=== PATIENT | male | born 1975 | race African-American/Black ===

== ENCOUNTER 2017-04-04 18:28 | Emergency (ER) | payer MEDICAID, OTHER ==
[~2017-04-04] VITALS: Ht 175.3 cm; Wt 67.0 kg
[2017-04-05] MEDS ORDERED: IPRATROPIUM/ALBUTEROL 0.5-3(2.5)MG/3ML NEB HHN ONE (03:45)
[2017-04-05 04:07] LABS: HEMOGLOBIN. 13.1 g/dL (14.0-18.0); INR 1.2; MEAN CORPUSCULAR HEMOGLOBIN 32.6 pg (28.0-32.0); MEAN CORPUSCULAR VOLUME 94.3 fL (80.0-94.0); MEAN PLATELET VOLUME 7.8 fl (7.4-10.4); PLATELET 195 x1000/uL (130-400); PROTHROMBIN TIME 12.5 sec (9.4-11.6); RED BLOOD CELL COUNT 4.03 mill/uL (4.7-6.1); RED CELL DISTRIBUTION WIDTH 11.7 % (11.6-14.6)
[2017-04-05 04:13] LABS: CHLORIDE 103 mEq/L (98-107)
[2017-04-05 04:17] VITALS: BP 115/77
[2017-04-05] MEDS ORDERED: SODIUM CHLORIDE 0.9% 1,000 ML IV ONE (04:20)
[2017-04-05] MEDS ORDERED: OSELTAMIVIR 75MG CAPSULE PO ONE (05:15)
[2017-04-05 06:42] LABS: PLATELET ESTIMATE NORMAL
== END 2017-04-05 05:40 | disposition home or self-care (01) ==
LOC: ER 18:57
DX: J11.1 Influenza due to unidentified influenza virus with other respiratory manifestations (principal); J45.909 Unspecified asthma, uncomplicated; F12.10 Cannabis abuse, uncomplicated; F17.290 Nicotine dependence, other tobacco product, uncomplicated; Z88.5 Allergy status to narcotic agent
CPT/HCPCS: 36415; 71045; 80053; 85025; 85610; 87804; 94640; 99285; J7030; J7620; Z7610

== ENCOUNTER 2018-02-10 16:23 | Inpatient (IN) | payer MEDICAID ==
[~2018-02-10] VITALS: Ht 172.7 cm; Wt 70.8 kg
[2018-02-10] MEDS ORDERED: IPRATROPIUM BROMIDE (0.02%) 0.5MG/2.5ML NEB HHN STA (16:41)
[2018-02-10] MEDS ORDERED: METHYLPREDNISOLONE SOD SUCC 125 MG/2 ML VIAL IV STA (16:41)
[2018-02-10] MEDS ORDERED: MAGNESIUM 2 G PREMIX 50 ML IV ONE (16:45)
[2018-02-10] MEDS ORDERED: ALBUTEROL (0.083%) 2.5MG/3ML NEB HHN SCH (17:00)
[2018-02-10 17:31] LABS: BASOPHILS % 0.4 % (0.0-2.0); CHLORIDE 102 mEq/L (98-107); EOSINOPHILS % 4.4 % (0.0-5.0); HEMATOCRIT. 45.1 % (42.0-52.0); HEMOGLOBIN. 15.2 g/dL (14.0-18.0); LYMPHOCYTES % 30.9 % (20.0-50.0); MEAN CORPUSCULAR HEMOGLOBIN 32.2 pg (28.0-32.0); MEAN CORPUSCULAR VOLUME 95.6 fL (80.0-94.0); MEAN PLATELET VOLUME 8.1 fl (7.4-10.4); MONOCYTES % 8.2 % (2.0-8.0); NEUTROPHILS % 56.1 % (40.0-76.0); PLATELET 234 x1000/uL (130-400); RED BLOOD CELL COUNT 4.72 mill/uL (4.7-6.1); RED CELL DISTRIBUTION WIDTH 11.8 % (11.6-14.6)
[2018-02-10 17:57] LABS: INR 1.2; PROTHROMBIN TIME 11.6 sec (9.1-11.1)
[2018-02-10] MEDS ORDERED: SODIUM CHLORIDE 0.9% 1000ML BAG (SEPSIS BOLUS) IV ONE (18:30)
[2018-02-10] MEDS ORDERED: AZITHROMYCIN 500 MG in DEXT 5% WATER 250 ML IV ONE (18:45)
[2018-02-10] MEDS ORDERED: CEFTRIAXONE 2 G PREMIX 50 ML IV ONE (18:45)
[2018-02-10 23:28] VITALS: BP 140/80
[2018-02-11] VITALS (9 sets, daily range): BP systolic 107–148; BP diastolic 53–93
[2018-02-11] MEDS ORDERED: MULT-1146 MT (00:43)
[2018-02-11] MEDS ORDERED: ALBU05 NEB (00:45)
[2018-02-11] MEDS ORDERED: HYDROCODONE/ACETAMINOPHEN 10/325MG TABLET PO PRN (00:45)
[2018-02-11] MEDS ORDERED: IPRATROPIUM/ALBUTEROL 0.5-3(2.5)MG/3ML NEB HHN PRN (00:45)
[2018-02-11] MEDS ORDERED: DIPHENHYDRAMINE 50MG CAPSULE PO PRN (00:45)
[2018-02-11] MEDS ORDERED: LORA5TAB8 MT (00:45)
[2018-02-11] MEDS ORDERED: ACETAMINOPHEN 325MG TABLET PO PRN (00:45)
[2018-02-11] MEDS ORDERED: NON FORMULARY PATIENT HOME MED EA XX SCH (00:45)
[2018-02-11] MEDS ORDERED: ALBU90AE INH (00:45)
[2018-02-11] MEDS ORDERED: ZOLPIDEM TARTRATE 5MG TABLET PO PRN (02:15)
[2018-02-11] MEDS ORDERED: LEVOFLOXACIN 500MG PREMIX 100 ML IV SCH (03:00)
[2018-02-11] MEDS ORDERED: ALBUTEROL (0.083%) 2.5MG/3ML NEB HHN SCH (06:00)
[2018-02-11] MEDS ORDERED: METHYLPREDNISOLONE SOD SUCC 40 MG/ML VIAL IV SCH (08:00)
[2018-02-11] MEDS ORDERED: BUDESONIDE 0.5MG/2ML NEB HHN SCH (09:00)
[2018-02-11] MEDS: IPRATROPIUM/ALBUTEROL 0.5-3(2.5)MG/3ML NEB HHN SCH ×2 (09:05→12:31)
[2018-02-11] MEDS ORDERED: LORATADINE 10MG TABLET PO SCH ×2 (11:30→21:00)
[2018-02-11] MEDS ORDERED: PNEUMOCOCCAL 23-VAL P-SAC VAC 0.5 ML IM ONE (12:00)
[2018-02-11] MEDS ORDERED: INFLUENZA VIRUS VACCINE(AFLURIA) 0.5ML SYR IM ONE (12:00)
[2018-02-11] MEDS ORDERED: NICOTINE 21MG PATCH TD NR (13:00)
[2018-02-11] MEDS ORDERED: FAMOTIDINE 20MG/2ML VIAL IV NR (13:00)
[2018-02-11] MEDS ORDERED: MONTELUKAST SODIUM 10MG TABLET PO SCH (21:00)
[2018-02-11] MEDS ORDERED: FAMOTIDINE 20MG/2ML VIAL IV SCH (21:00)
[2018-02-12] MEDS ORDERED: NICOTINE 21MG PATCH TD SCH (09:00)
== END 2018-02-11 14:19 | disposition home or self-care (01) | DRG 144 ==
LOC: ER 16:48 → 5EST 18:35 → EDBEDREQSVC 18:38 → EDBEDREQTM 18:38 → EDBEDREQ 18:38 → ENRESERV 21:57
PROVIDERS: ADMIT Internal Medicine; ATTEND Internal Medicine
PROC: 5A09357 Assistance with Respiratory Ventilation, Less than 24 Consecutive Hours, Continuous Positive Airway Pressure (ICD-10-PCS; principal; 2018-02-10)
DX: J68.0 Bronchitis and pneumonitis due to chemicals, gases, fumes and vapors (principal); J96.00 Acute respiratory failure, unspecified whether with hypoxia or hypercapnia; J45.901 Unspecified asthma with (acute) exacerbation; F17.210 Nicotine dependence, cigarettes, uncomplicated; F12.90 Cannabis use, unspecified, uncomplicated; E87.2 Acidosis; Z88.5 Allergy status to narcotic agent; Z82.5 Family history of asthma and other chronic lower respiratory diseases
CPT/HCPCS: 36415; 71045; 83605; 83880; 84484; 90686; 90732; 93005; 94640; 94660; 96365; 96375; 99291; J0456; J0696; J1956; J2920; J2930; J3475; J7060; J7611; J7620; J7626

== ENCOUNTER 2018-02-24 20:00 | Emergency (ER) | payer MEDICAID ==
[~2018-02-24] VITALS: Ht 175.3 cm; Wt 79.0 kg
[~2018-02-24 20:00] MED LIST: ALBU05 NEB; ALBU90AE INH; LORA5TAB8 MT; MULT-1146 MT
[2018-02-24] MEDS ORDERED: IPRATROPIUM BROMIDE (0.02%) 0.5MG/2.5ML NEB HHN STA ×2 (22:59)
[2018-02-24] MEDS ORDERED: PREDNISONE 20MG TABLET PO STA (22:59)
[2018-02-24] MEDS ORDERED: ALBUTEROL (0.083%) 2.5MG/3ML NEB HHN STA ×2 (22:59)
[2018-02-25 01:03] VITALS: BP 119/67
== END 2018-02-25 01:08 | disposition home or self-care (01) ==
LOC: ER 20:00
DX: J45.901 Unspecified asthma with (acute) exacerbation (principal); Z79.899 Other long term (current) drug therapy
CPT/HCPCS: 71045; 94640; 99283; J7512; J7611

== ENCOUNTER 2018-04-07 00:10 | Emergency (ER) | payer MEDICAID, OTHER ==
[~2018-04-07] VITALS: Ht 167.6 cm; Wt 69.0 kg
[2018-04-07] MEDS ORDERED: IPRATROPIUM BROMIDE (0.02%) 0.5MG/2.5ML NEB HHN STA (01:03)
[2018-04-07] MEDS ORDERED: METHYLPREDNISOLONE SOD SUCC 125 MG/2 ML VIAL IV STA (01:03)
[2018-04-07] MEDS ORDERED: ALBUTEROL (0.083%) 2.5MG/3ML NEB HHN STA (01:03)
[2018-04-07] MEDS ORDERED: ALBUTEROL (0.083%) 2.5MG/3ML NEB HHN ONE (02:00)
[2018-04-07 04:15] VITALS: BP 132/75
== END 2018-04-07 04:18 | disposition home or self-care (01) ==
LOC: ER 00:10
DX: J45.909 Unspecified asthma, uncomplicated (principal); R03.0 Elevated blood-pressure reading, without diagnosis of hypertension
CPT/HCPCS: 71045; 94640; 96374; 99284; J2930; J7611

== ENCOUNTER 2018-04-22 14:07 | Inpatient (IN) | payer MEDICAID ==
[~2018-04-22] VITALS: Ht 172.7 cm; Wt 80.7 kg
[2018-04-22] MEDS ORDERED: MAGNESIUM 2 G PREMIX 50 ML IV STA (14:23)
[2018-04-22] MEDS ORDERED: IPRATROPIUM BROMIDE (0.02%) 0.5MG/2.5ML NEB HHN STA (14:23)
[2018-04-22] MEDS ORDERED: METHYLPREDNISOLONE SOD SUCC 125 MG/2 ML VIAL IV STA (14:23)
[2018-04-22] MEDS ORDERED: ALBUTEROL (0.083%) 2.5MG/3ML NEB HHN STA (14:23)
[2018-04-22] MEDS ORDERED: SODIUM CHLORIDE 0.9% 1000ML BAG (SEPSIS BOLUS) IV ONE (14:30)
[2018-04-22] MEDS ORDERED: LEVOFLOXACIN 500MG PREMIX 100 ML IV ONE (15:00)
[2018-04-22 15:06] LABS: BASOPHILS % 0.3 % (0.0-2.0); EOSINOPHILS % 0.1 % (0.0-5.0); HEMATOCRIT. 41.6 % (42.0-52.0); HEMOGLOBIN. 14.1 g/dL (14.0-18.0); LYMPHOCYTES % 14.7 % (20.0-50.0); MEAN CORPUSCULAR HEMOGLOBIN 33.3 pg (28.0-32.0); MEAN CORPUSCULAR VOLUME 97.9 fL (80.0-94.0); MEAN PLATELET VOLUME 8.7 fl (7.4-10.4); MONOCYTES % 10.5 % (2.0-8.0); NEUTROPHILS % 74.4 % (40.0-76.0); PLATELET 174 x1000/uL (130-400); RED BLOOD CELL COUNT 4.25 mill/uL (4.7-6.1); RED CELL DISTRIBUTION WIDTH 12.4 % (11.6-14.6)
[2018-04-22 15:13] LABS: CHLORIDE 101 mEq/L (98-107); INR 1.1; PARTIAL THROMBOPLASTIN TIME 28.7 sec (23.4-31.0); PROTHROMBIN TIME 11.4 sec (9.1-11.1)
[2018-04-22] MEDS ORDERED: POTASSIUM CHLORIDE 20MEQ TABLET SR PO ONE (18:15)
[2018-04-22] MEDS ORDERED: ACETAMINOPHEN 325MG TABLET PO PRN (19:15)
[2018-04-22] MEDS ORDERED: ONDANSETRON HCL 4MG/2ML INJ IV PRN (19:15)
[2018-04-22] MEDS ORDERED: IPRATROPIUM/ALBUTEROL 0.5-3(2.5)MG/3ML NEB HHN PRN (19:15)
[2018-04-22] MEDS ORDERED: GUAIFENESIN-DM 200MG-20MG/10ML UDC PO PRN (19:15)
[2018-04-22 21:45] VITALS: BP 143/78
[2018-04-22 21:50] VITALS: BP 143/78
[2018-04-22 21:55] VITALS: BP 143/78
[2018-04-22 22:00] VITALS: BP 143/78
[2018-04-22 23:22] LABS: CLARITY URINE CLEAR (CLEAR); COLOR URINE YELLOW (YELLOW); KETONES URINE NEGATIVE (NEGATIVE); LEUKOCYTE ESTERASE URINE 1+ (NEGATIVE); NITRITE URINE NEGATIVE (NEGATIVE); OCCULT BLOOD URINE NEGATIVE (NEGATIVE); PH URINE 8.5 (4.5-8.0); PROTEIN URINE NEGATIVE (NEGATIVE); SPECIFIC GRAVITY URINE 1.019 (1.005-1.030)
[2018-04-22] MEDS: LORAZEPAM 1MG TABLET PO PRN (23:30)
[2018-04-22 23:36] LABS: *AMPHETAMINES SCREEN URINE NEGATIVE (NEGATIVE); *BARBITURATES SCREEN URINE NEGATIVE (NEGATIVE); *BENZODIAZEPINES SCREEN URINE PRESUMTIVE POSITIVE (NEGATIVE); *COCAINE SCREEN URINE NEGATIVE (NEGATIVE)
[2018-04-22 23:37] LABS: CANNABINOID URINE SCREEN PRESUMTIVE POSITIVE (NEGATIVE); METHADONE URINE SCREEN NEGATIVE (NEGATIVE); OPIATES URINE SCREEN NEGATIVE (NEGATIVE); PHENCYCLIDINE URINE SCREEN NEGATIVE (NEGATIVE)
[2018-04-23] VITALS: BP 131/72
[2018-04-23] MEDS: IPRATROPIUM/ALBUTEROL 0.5-3(2.5)MG/3ML NEB HHN SCH ×6 (01:07→20:37)
[2018-04-23 04:00] VITALS: BP 123/58
[2018-04-23] MEDS: METHYLPREDNISOLONE SOD SUCC 40 MG/ML VIAL IV SCH ×3 (04:04→18:46)
[2018-04-23 08:00] VITALS: BP 127/73
[2018-04-23] MEDS: AZITHROMYCIN 500 MG TABLET PO SCH (08:53)
[2018-04-23 10:33] LABS: HEMATOCRIT. 43.4 % (42.0-52.0); HEMOGLOBIN. 14.1 g/dL (14.0-18.0); MEAN CORPUSCULAR HEMOGLOBIN 32.6 pg (28.0-32.0); MEAN CORPUSCULAR VOLUME 100.6 fL (80.0-94.0); MEAN PLATELET VOLUME 8.8 fl (7.4-10.4); PLATELET 178 x1000/uL (130-400); RED BLOOD CELL COUNT 4.31 mill/uL (4.7-6.1); RED CELL DISTRIBUTION WIDTH 12.7 % (11.6-14.6)
[2018-04-23 10:37] LABS: CHLORIDE 108 mEq/L (98-107)
[2018-04-23 12:00] VITALS: BP 118/70
[2018-04-23 14:53] LABS: PLATELET ESTIMATE NORMAL
[2018-04-23 16:00] VITALS: BP 115/73
[2018-04-23] MEDS: LORAZEPAM 1MG TABLET PO PRN (16:47)
[2018-04-23] MEDS ORDERED: MONTELUKAST SODIUM 10MG TABLET PO SCH (17:00)
[2018-04-23 20:00] VITALS: BP 112/66
[2018-04-23] MEDS: FAMOTIDINE 20MG TABLET PO SCH (21:10)
[2018-04-24] VITALS: BP 118/54
[2018-04-24] MEDS: LORAZEPAM 1MG TABLET PO PRN
[2018-04-24] MEDS: IPRATROPIUM/ALBUTEROL 0.5-3(2.5)MG/3ML NEB HHN SCH ×4 (00:34→12:16)
[2018-04-24 04:00] VITALS: BP 115/60
[2018-04-24] MEDS: METHYLPREDNISOLONE SOD SUCC 40 MG/ML VIAL IV SCH (04:01)
[2018-04-24 06:54] LABS: CHLORIDE 109 mEq/L (98-107)
[2018-04-24 07:24] LABS: HEMATOCRIT. 38.9 % (42.0-52.0); HEMOGLOBIN. 12.8 g/dL (14.0-18.0); MEAN CORPUSCULAR HEMOGLOBIN 32.8 pg (28.0-32.0); MEAN CORPUSCULAR VOLUME 99.3 fL (80.0-94.0); MEAN PLATELET VOLUME 9.1 fl (7.4-10.4); PLATELET 188 x1000/uL (130-400); RED BLOOD CELL COUNT 3.92 mill/uL (4.7-6.1); RED CELL DISTRIBUTION WIDTH 12.4 % (11.6-14.6)
[2018-04-24 07:54] VITALS: BP 122/46
[2018-04-24] MEDS ORDERED: LORATADINE 10MG TABLET PO SCH (09:00)
[2018-04-24] MEDS: AZITHROMYCIN 500 MG TABLET PO SCH (09:11)
[2018-04-24] MEDS: FAMOTIDINE 20MG TABLET PO SCH (09:11)
[2018-04-24 12:00] VITALS: BP 117/50
[2018-04-24 13:17] VITALS: BP 122/86
[2018-04-24 14:10] LABS: PLATELET ESTIMATE NORMAL
[2018-04-25] MEDS ORDERED: PREDNISONE 20MG TABLET PO SCH (09:00)
== END 2018-04-24 15:20 | disposition home or self-care (01) | DRG 133 ==
LOC: ER 14:07 → 8WST 15:35 → EDBEDREQ 15:42 → EDBEDREQTM 15:42 → ENRESERV 20:28 → 8WST 04-23 15:19
PROVIDERS: ADMIT Internal Medicine; ATTEND Internal Medicine
DX: J96.01 Acute respiratory failure with hypoxia (principal); J45.901 Unspecified asthma with (acute) exacerbation; R65.10 Systemic inflammatory response syndrome (SIRS) of non-infectious origin without acute organ dysfunction; E87.6 Hypokalemia; F12.90 Cannabis use, unspecified, uncomplicated; D72.821 Monocytosis (symptomatic)
CPT/HCPCS: 36415; 71045; 80048; 80305; 83036; 83605; 84145; 84484; 87070; 87077; 87804; 93005; 93970; 94640; 96374; 99291; J1956; J2920; J2930; J3475; J7030; J7611; J7620

== ENCOUNTER 2019-01-07 14:34 | Emergency (ER) | payer MEDICAID ==
[~2019-01-07] VITALS: Ht 170.2 cm; Wt 82.0 kg
[2019-01-07] MEDS ORDERED: ALBUTEROL (0.083%) 2.5MG/3ML NEB HHN ONE ×2 (16:30→17:15)
[2019-01-07] MEDS ORDERED: PREDNISONE 20MG TABLET PO ONE (16:30)
[2019-01-07 18:07] VITALS: BP 116/76
== END 2019-01-07 18:09 | disposition home or self-care (01) ==
LOC: ER 14:34
DX: J45.909 Unspecified asthma, uncomplicated (principal); Z98.890 Other specified postprocedural states
CPT/HCPCS: 94640; 99284; J7512; J7611; Z7610

== ENCOUNTER 2021-07-26 11:58 | Emergency (ER) | payer MEDICAID ==
[~2021-07-26] VITALS: Ht 175.3 cm; Wt 75.0 kg
[2021-07-26 12:22] VITALS: BP 134/78
[2021-07-26] MEDS ORDERED: IPRATROPIUM BROMIDE (0.02%) 0.5MG/2.5ML NEB HHN STA (12:26)
[2021-07-26] MEDS ORDERED: METHYLPREDNISOLONE SOD SUCC 125 MG/2 ML VIAL IM STA (12:26)
[2021-07-26] MEDS ORDERED: ALBUTEROL (0.083%) 2.5MG/3ML NEB HHN STA (12:26)
[2021-07-26] MEDS ORDERED: P50 MT (13:53)
[2021-07-26] MEDS ORDERED: ALBU2.5V13 NEB (13:53)
[2021-07-26] MEDS ORDERED: ALBU18HF2 IH (15:25)
== END 2021-07-26 14:18 | disposition home or self-care (01) ==
LOC: ER 11:58
DX: J45.901 Unspecified asthma with (acute) exacerbation (principal); I10 Essential (primary) hypertension
CPT/HCPCS: 71045; 94640; 96372; 99283; J2930; Z7610

== ENCOUNTER 2021-07-28 11:19 | Emergency (ER) | payer MEDICAID ==
[~2021-07-28] VITALS: Ht 175.3 cm; Wt 75.0 kg
[~2021-07-28 11:19] MED LIST changes: +ALBU18HF2 IH; +ALBU2.5V13 NEB; +P50 MT
[2021-07-28] MEDS ORDERED: PREDNISONE 20MG TABLET PO STA (11:30)
[2021-07-28] MEDS ORDERED: IPRATROPIUM BROMIDE (0.02%) 0.5MG/2.5ML NEB HHN STA ×3 (11:30→15:25)
[2021-07-28] MEDS ORDERED: ALBUTEROL (0.083%) 2.5MG/3ML NEB HHN STA ×3 (11:30→15:25)
[2021-07-28] MEDS ORDERED: MAGNESIUM 2 G PREMIX 50 ML IV ONE (13:15)
[2021-07-28 16:18] LABS: HEMATOCRIT. 38.1 % (42.0-52.0); HEMOGLOBIN. 13.2 g/dL (14.0-18.0); MEAN CORPUSCULAR HEMOGLOBIN 34.9 pg (28.0-32.0); MEAN PLATELET VOLUME 8.4 fl (7.4-10.4); PLATELET 217 x1000/uL (130-400); RED BLOOD CELL COUNT 3.77 mill/uL (4.7-6.1); RED CELL DISTRIBUTION WIDTH 12.3 % (11.6-14.6)
[2021-07-28 16:45] LABS: CHLORIDE 108 mEq/L (98-107)
[2021-07-28 17:06] LABS: PLATELET ESTIMATE NORMAL
[2021-07-29 00:03] VITALS: BP 163/98
== END 2021-07-29 00:01 | disposition short-term general hospital (02) ==
LOC: ER 11:19
DX: J45.901 Unspecified asthma with (acute) exacerbation (principal); Z20.822 Contact with and (suspected) exposure to COVID-19
CPT/HCPCS: 36415; 71045; 80053; 85025; 87426; 94640; 96365; 96366; 99285; J3475; J7512; Z7610

== ENCOUNTER 2021-09-21 11:02 | Emergency (ER) | payer MEDICAID, OTHER ==
[~2021-09-21] VITALS: Ht 167.6 cm; Wt 75.0 kg
[2021-09-21 11:20] VITALS: BP 132/111
[2021-09-21] MEDS ORDERED: PREDNISONE 20MG TABLET PO STA (11:26)
[2021-09-21] MEDS ORDERED: ALBUTEROL (0.083%) 2.5MG/3ML NEB HHN STA (11:26)
[2021-09-21] MEDS ORDERED: P50 MT (12:15)
[2021-09-21] MEDS ORDERED: ALBU6.7H15 INH (12:15)
== END 2021-09-21 13:49 | disposition home or self-care (01) ==
LOC: ER 11:02
DX: U07.1 COVID-19 (principal); J45.901 Unspecified asthma with (acute) exacerbation; Z79.51 Long term (current) use of inhaled steroids; Z79.899 Other long term (current) drug therapy
CPT/HCPCS: 71045; 87426; 94640; 99283; C9803; J7512; Z7610

== ENCOUNTER 2022-02-09 07:16 | Emergency (ER) | payer MEDICAID, OTHER ==
[~2022-02-09] VITALS: Ht 170.2 cm; Wt 75.0 kg
[~2022-02-09 07:16] MED LIST changes: +ALBU6.7H15 INH
[2022-02-09 08:00] VITALS: BP 138/91
[2022-02-09] MEDS ORDERED: ALBUTEROL (0.083%) 2.5MG/3ML NEB HHN STA (10:07)
[2022-02-09] MEDS ORDERED: IPRATROPIUM BROMIDE (0.02%) 0.5MG/2.5ML NEB HHN STA (10:07)
[2022-02-09] MEDS ORDERED: PREDNISONE 20MG TABLET PO ONE (10:15)
[2022-02-09] MEDS ORDERED: ALBU6.7H3 INH (10:19)
[2022-02-09] MEDS ORDERED: P20 MT (10:19)
[2022-02-09] MEDS ORDERED: ALBUTEROL (0.5%) 2.5MG/0.5ML NEB HHN ONE (10:28)
== END 2022-02-09 12:05 | disposition home or self-care (01) ==
LOC: ER 07:16
DX: J45.901 Unspecified asthma with (acute) exacerbation (principal); Z79.899 Other long term (current) drug therapy
CPT/HCPCS: 94640; 99283; J7512; Z7610

== ENCOUNTER 2022-07-15 08:49 | Emergency (ER) | payer OTHER ==
[~2022-07-15] VITALS: Ht 172.7 cm; Wt 74.1 kg
[~2022-07-15 08:49] MED LIST changes: +ALBU6.7H3 INH; +P20 MT
[2022-07-15 08:53] VITALS: BP 132/82
[2022-07-15] MEDS ORDERED: IPRATROPIUM/ALBUTEROL 0.5-3(2.5)MG/3ML NEB HHN ONE (09:00)
[2022-07-15 09:13] LABS: BASOPHILS % 0.6 % (0.0-2.0); EOSINOPHILS % 9.6 % (0.0-5.0); HEMATOCRIT. 38.6 % (42.0-52.0); HEMOGLOBIN. 13.5 g/dL (14.0-18.0); MEAN CORPUSCULAR HEMOGLOBIN 34.1 pg (28.0-32.0); MEAN CORPUSCULAR VOLUME 97.5 fL (80.0-94.0); MEAN PLATELET VOLUME 7.7 fl (7.4-10.4); MONOCYTES % 14.6 % (2.0-8.0); NEUTROPHILS % 31.2 % (40.0-76.0); PLATELET 213 x1000/uL (130-400); RED BLOOD CELL COUNT 3.96 mill/uL (4.7-6.1); RED CELL DISTRIBUTION WIDTH 12.9 % (11.6-14.6)
[2022-07-15 09:23] LABS: INR 1.1; PROTHROMBIN TIME 11.4 sec (9.6-11.0)
[2022-07-15 09:26] LABS: CHLORIDE 110 mEq/L (98-107)
[2022-07-15] MEDS ORDERED: DEXAMETHASONE 4MG/ML 1ML VIAL IM SCH (11:15)
[2022-07-15] MEDS ORDERED: IPRATROPIUM/ALBUTEROL 0.5-3(2.5)MG/3ML NEB ONE (11:29)
[2022-07-15] MEDS ORDERED: ALBU90AE INH (11:44)
[2022-07-15] MEDS ORDERED: P50 MT (11:44)
[2022-07-15] MEDS ORDERED: AZIT250T12 MT (11:44)
== END 2022-07-15 11:59 | disposition home or self-care (01) ==
LOC: ER 08:49
DX: J45.901 Unspecified asthma with (acute) exacerbation (principal); Z79.899 Other long term (current) drug therapy
CPT/HCPCS: 36415; 71045; 80053; 83880; 84484; 85025; 85610; 93005; 94640; 96372; 99285; J1100; Z7610

== ENCOUNTER 2022-08-19 12:36 | Emergency (ER) | payer OTHER ==
[~2022-08-19] VITALS: Ht 172.7 cm; Wt 75.0 kg
[~2022-08-19 12:36] MED LIST changes: +AZIT250T12 MT
[2022-08-19] MEDS ORDERED: DEXAMETHASONE 0.5MG/5ML ORAL SYR PO ONE (15:15)
[2022-08-19] MEDS ORDERED: IBUPROFEN 100MG/5ML UDC PO ONE (15:15)
[2022-08-19] MEDS ORDERED: DEXAMETHASONE 4MG TABLET PO NR (15:15)
[2022-08-19] MEDS ORDERED: ACETAMINOPHEN 160 MG/5 ML UD CUP PO ONE (15:15)
[2022-08-19] MEDS ORDERED: IBUPROFEN 100MG/5ML UDC PO NR (15:30)
[2022-08-19] MEDS ORDERED: ACETAMINOPHEN 650MG/20.3ML UDC PO NR (15:30)
[2022-08-19 15:39] LABS: BASOPHILS % 0.4 % (0.0-2.0); EOSINOPHILS % 1.6 % (0.0-5.0); HEMOGLOBIN. 14.9 g/dL (14.0-18.0); LYMPHOCYTES % 19.2 % (20.0-50.0); MEAN CORPUSCULAR VOLUME 97.9 fL (80.0-94.0); MEAN PLATELET VOLUME 7.9 fl (7.4-10.4); MONOCYTES % 6.5 % (2.0-8.0); NEUTROPHILS % 72.3 % (40.0-76.0); PLATELET 259 x1000/uL (130-400); RED BLOOD CELL COUNT 4.39 mill/uL (4.7-6.1); RED CELL DISTRIBUTION WIDTH 12.2 % (11.6-14.6)
[2022-08-19 15:57] LABS: CHLORIDE 107 mEq/L (98-107)
[2022-08-19] MEDS ORDERED: IOHEXOL-300 100 ML BOTTLE ONE (16:42)
[2022-08-19] MEDS ORDERED: VISCOUS LIDOCAINE 2% 15 ML UDC MM STA (17:28)
[2022-08-19] MEDS ORDERED: LIDOCAINE HCL/EPINEPHRINE 1%-EPI 1:100,000 20 ML VIAL INFIL ONE (17:30)
[2022-08-19] MEDS ORDERED: LIDOCAINE 1%/EPI 1:200,000 10 ML VIAL IJ NR (17:30)
[2022-08-19] MEDS ORDERED: DIAZEPAM 2 MG TABLET PO ONE (18:30)
[2022-08-19] MEDS ORDERED: TOPUD PO (19:09)
[2022-08-19] MEDS ORDERED: AMOX1TAB16 MT (19:09)
[2022-08-19] MEDS ORDERED: IBUP-2028 MT (19:09)
[2022-08-19] MEDS ORDERED: AMOXICILLIN/POTASSIUM CLAVULANATE 875/125MG TAB PO ONE (19:15)
[2022-08-19 19:34] VITALS: BP 118/80
== END 2022-08-19 19:36 | disposition home or self-care (01) ==
LOC: ER 14:33
DX: J02.9 Acute pharyngitis, unspecified (principal); R05.9 Cough, unspecified; R09.81 Nasal congestion; M54.2 Cervicalgia; J45.909 Unspecified asthma, uncomplicated
CPT/HCPCS: 36415; 70491; 80053; 85025; 87070; 87430; 99285; J8540; Q9967; Z7610; J3490

== ENCOUNTER 2022-08-22 04:07 | Emergency (ER) | payer OTHER ==
[~2022-08-22] VITALS: Ht 172.7 cm; Wt 75.0 kg
[~2022-08-22 04:07] MED LIST changes: +AMOX1TAB16 MT; +IBUP-2028 MT; +TOPUD PO
[2022-08-22] MEDS ORDERED: KETOROLAC 30MG/ML VIAL IV STA (05:40)
[2022-08-22] MEDS ORDERED: TETRACAINE/BENZOCAINE/BUTAMBEN 20 GM SPRAY MM ONE (05:45)
[2022-08-22] MEDS ORDERED: SODIUM CHLORIDE 0.9% 1,000 ML IV ONE (05:45)
[2022-08-22 09:02] VITALS: BP 120/80
== END 2022-08-22 09:03 | disposition home or self-care (01) ==
LOC: ER 04:07
DX: J36 Peritonsillar abscess (principal); J45.909 Unspecified asthma, uncomplicated; Z79.899 Other long term (current) drug therapy
CPT/HCPCS: 10060; 96361; 96374; 99283; J1885; J7030

== ENCOUNTER 2023-11-17 22:40 | Emergency (ER) | payer SELFPAY ==
[~2023-11-17] VITALS: Ht 165.1 cm; Wt 78.0 kg
[2023-11-17 22:53] VITALS: O2SAT 99
[2023-11-18 03:40] VITALS: BP 119/74; PULSE 68; RESP 14; TEMP 98.4
== END 2023-11-18 04:00 | disposition home or self-care (01) ==
LOC: ER 22:40
DX: G93.40 Encephalopathy, unspecified (principal); F10.129 Alcohol abuse with intoxication, unspecified; J45.909 Unspecified asthma, uncomplicated; Z79.899 Other long term (current) drug therapy; Y90.9 Presence of alcohol in blood, level not specified
CPT/HCPCS: 99283

== ENCOUNTER 2024-01-07 17:31 | Emergency (ER) | payer SELFPAY ==
[~2024-01-07] VITALS: Ht 175.3 cm; Wt 69.0 kg
[2024-01-07 17:45] VITALS: TEMP 98; O2SAT 98
[2024-01-07] MEDS ORDERED: GUAI600T26 MT (18:10)
[2024-01-07 18:26] VITALS: BP 142/77; PULSE 78; RESP 16; O2SAT 98
== END 2024-01-07 18:40 | disposition home or self-care (01) ==
LOC: ER 17:31
DX: J45.901 Unspecified asthma with (acute) exacerbation (principal); J32.9 Chronic sinusitis, unspecified; Z79.899 Other long term (current) drug therapy
CPT/HCPCS: 71045; 99283